=== PATIENT | male | born 1950 | race Caucasian/White ===

== ENCOUNTER → 2021-04-09 | Outpatient (CLI) | payer BC | LOC: HEART 5 15:01 | DX: J44.9 Chronic obstructive pulmonary disease, unspecified (principal) | CPT/HCPCS: 94060; 94729 ==

== ENCOUNTER 2021-07-16 14:46 | Inpatient (IN) | payer OTHER ==
[~2021-07-16] VITALS: Ht 170.2 cm; Wt 109.8 kg
[2021-07-16 15:06] LABS: RED BLOOD COUNT 4.21 M/UL (4.20-5.50); WHITE BLOOD COUNT 3.4 K/UL (4.5-11.0)
[2021-07-16 17:57] LABS: BUN/CREATININE RATIO 31 (0-10)
[2021-07-17] MEDS ORDERED: ZESTRIL5 MG PO (04:50)
[2021-07-17] MEDS ORDERED: OMEPRAZOLE20 MG PO (04:51)
[2021-07-17] MEDS ORDERED: POTASSIUM CHLO10 MEQ PO (04:52)
[2021-07-17] MEDS ORDERED: ADULT LOW DOSE81 MG PO (04:53)
[2021-07-17] MEDS ORDERED: LOVASTATIN20 MG PO (04:53)
[2021-07-17] MEDS ORDERED: ISOSORBIDE MONO30 MG PO (04:55)
[2021-07-17] MEDS ORDERED: LASIX40 MG PO (04:55)
[2021-07-17] MEDS ORDERED: GLUCOPHAGE 500500 MG PO (04:56)
[2021-07-17] MEDS ORDERED: NITROSTAT 0.40.4 MG SL (04:57)
[2021-07-17] MEDS ORDERED: TRELEGY ELLIPT1 EAC1 INH (04:58)
[2021-07-17 07:16] LABS: HEMOGLOBIN 14.6 gm/dl (14.0-17.5); RED BLOOD COUNT 4.44 M/UL (4.20-5.50); WHITE BLOOD COUNT 3.3 K/UL (4.5-11.0)
[2021-07-17 07:38] LABS: BUN/CREATININE RATIO 31 (0-10)
[2021-07-18 03:32] LABS: HEMOGLOBIN 15.8 gm/dl (14.0-17.5); RED BLOOD COUNT 4.79 M/UL (4.20-5.50)
[2021-07-18 03:36] LABS: WHITE BLOOD COUNT 7.5 K/UL (4.5-11.0)
[2021-07-18 03:59] LABS: BUN/CREATININE RATIO 43 (0-10)
[2021-07-19 04:09] LABS: BUN/CREATININE RATIO 38 (0-10)
--- NOTE | 2021-07-21 01:24 | NUR ---
PTS OXYGEN IS 83% WITH 15L HF. NOTIFIED DR BARROS AND AIRVO ORDERED.
[2021-07-21 03:39] LABS: RED BLOOD COUNT 4.28 M/UL (4.20-5.50); WHITE BLOOD COUNT 9.8 K/UL (4.5-11.0)
[2021-07-21 04:03] LABS: BUN/CREATININE RATIO 39 (0-10)
--- NOTE | 2021-07-22 19:20 | NUR ---
CALLED CARDIOLOGY DR HOOPER AND NOTIFIED HIM OF PTS HR OF 45 AND PAUSES. NO NEW ORDERS AT THIS TIME.
[2021-07-23 03:05] LABS: HEMOGLOBIN 14.1 gm/dl (14.0-17.5); RED BLOOD COUNT 4.31 M/UL (4.20-5.50); WHITE BLOOD COUNT 8.4 K/UL (4.5-11.0)
[2021-07-23 04:04] LABS: BUN/CREATININE RATIO 45 (0-10)
--- NOTE | 2021-07-23 06:09 | NUR ---
LATE ENTRY 07/23/21 0220 PTS OXYGEN NOTED TO BE 87% WITH AIRVO AT 93% AND GOOD PLETH. NOTIFIED DR MENA AND ORDERS FOR BIPAP PLACED. RESP AT BEDSIDE.
[2021-07-24 03:28] LABS: HEMOGLOBIN 13.7 gm/dl (14.0-17.5); RED BLOOD COUNT 4.22 M/UL (4.20-5.50); WHITE BLOOD COUNT 8.4 K/UL (4.5-11.0)
[2021-07-24 03:50] LABS: BUN/CREATININE RATIO 47 (0-10)
[2021-07-25 03:57] LABS: HEMOGLOBIN 14.3 gm/dl (14.0-17.5); RED BLOOD COUNT 4.41 M/UL (4.20-5.50); WHITE BLOOD COUNT 8.6 K/UL (4.5-11.0)
[2021-07-25 04:16] LABS: BUN/CREATININE RATIO 51 (0-10)
[2021-07-27 04:15] LABS: HEMOGLOBIN 15.4 gm/dl (14.0-17.5); RED BLOOD COUNT 4.65 M/UL (4.20-5.50)
[2021-07-27 04:19] LABS: WHITE BLOOD COUNT 14.2 K/UL (4.5-11.0)
[2021-07-27 04:27] LABS: BUN/CREATININE RATIO 42 (0-10)
[2021-07-28 03:22] LABS: HEMOGLOBIN 14.5 gm/dl (14.0-17.5); RED BLOOD COUNT 4.36 M/UL (4.20-5.50); WHITE BLOOD COUNT 13.7 K/UL (4.5-11.0)
[2021-07-28 03:43] LABS: BUN/CREATININE RATIO 46 (0-10)
[2021-07-29 03:28] LABS: HEMOGLOBIN 14.4 gm/dl (14.0-17.5); RED BLOOD COUNT 4.36 M/UL (4.20-5.50); WHITE BLOOD COUNT 17.1 K/UL (4.5-11.0)
[2021-07-29 03:50] LABS: BUN/CREATININE RATIO 48 (0-10)
[2021-07-30 03:08] LABS: BUN/CREATININE RATIO 50 (0-10)
[2021-07-31 04:39] LABS: BUN/CREATININE RATIO 50 (0-10)
--- NOTE | 2021-08-01 03:32 | NUR ---
DONE PT TEACHING ON PT REGARDING BIPAP VERSUS AIRVO. PT CURRENTLY ON AIRVO SATING 85%. PT REFUSES TO PUT BIPAP ON AT THIS TIME. EXPLAINED IMPORTANCE.
[2021-08-02 03:20] LABS: BUN/CREATININE RATIO 49 (0-10)
[2021-08-02 18:57] LABS: HEMOGLOBIN 13.6 gm/dl (14.0-17.5); RED BLOOD COUNT 4.12 M/UL (4.20-5.50); WHITE BLOOD COUNT 15.1 K/UL (4.5-11.0)
--- NOTE | 2021-08-02 22:48 | NUR ---
EDUCATED PATIENT ON FALLS. EDUCATED PT ON SITTING IN CHAIR WHILE SLEEPING. PT REFUSES TO GET BACK IN BED AT THIS TIME.
[2021-08-03 03:55] LABS: BUN/CREATININE RATIO 46 (0-10)
[2021-08-04 04:00] LABS: HEMOGLOBIN 14.1 gm/dl (14.0-17.5); RED BLOOD COUNT 4.2 M/UL (4.20-5.50)
[2021-08-04 04:22] LABS: BUN/CREATININE RATIO 51 (0-10)
[2021-08-05 03:39] LABS: BUN/CREATININE RATIO 57 (0-10)
[2021-08-06 03:08] LABS: BUN/CREATININE RATIO 59 (0-10)
--- NOTE | 2021-08-07 01:51 | NUR ---
PT HAS MILD NOSE BLEEDS DUE TO NASAL CANULA.
[2021-08-08 02:08] LABS: HEMOGLOBIN 15.7 gm/dl (14.0-17.5); RED BLOOD COUNT 4.74 M/UL (4.20-5.50); WHITE BLOOD COUNT 14.6 K/UL (4.5-11.0)
[2021-08-08 02:28] LABS: BUN/CREATININE RATIO 54 (0-10)
[2021-08-11 02:25] LABS: HEMOGLOBIN 14.2 gm/dl (14.0-17.5); RED BLOOD COUNT 4.23 M/UL (4.20-5.50); WHITE BLOOD COUNT 13.1 K/UL (4.5-11.0)
[2021-08-11 02:55] LABS: BUN/CREATININE RATIO 37 (0-10)
[2021-08-12 15:10] LABS: HEMOGLOBIN 13.2 gm/dl (14.0-17.5); RED BLOOD COUNT 3.97 M/UL (4.20-5.50)
[2021-08-12 15:13] LABS: WHITE BLOOD COUNT 9.6 K/UL (4.5-11.0)
[2021-08-12 15:28] LABS: BUN/CREATININE RATIO 27 (0-10)
[2021-08-13 03:30] LABS: HEMOGLOBIN 12.2 gm/dl (14.0-17.5); RED BLOOD COUNT 3.68 M/UL (4.20-5.50); WHITE BLOOD COUNT 8.8 K/UL (4.5-11.0)
[2021-08-13 04:07] LABS: BUN/CREATININE RATIO 21 (0-10)
[2021-08-14 02:30] LABS: RED BLOOD COUNT 3.93 M/UL (4.20-5.50); WHITE BLOOD COUNT 10.4 K/UL (4.5-11.0)
[2021-08-14 03:02] LABS: BUN/CREATININE RATIO 25 (0-10)
[2021-08-15 02:43] LABS: HEMOGLOBIN 12.1 gm/dl (14.0-17.5); RED BLOOD COUNT 3.71 M/UL (4.20-5.50)
[2021-08-15 02:52] LABS: WHITE BLOOD COUNT 7.4 K/UL (4.5-11.0)
[2021-08-15 03:12] LABS: BUN/CREATININE RATIO 25 (0-10)
[2021-08-16 12:36] LABS: HEMOGLOBIN 11.8 gm/dl (14.0-17.5); RED BLOOD COUNT 3.54 M/UL (4.20-5.50); WHITE BLOOD COUNT 8.4 K/UL (4.5-11.0)
[2021-08-16 13:18] LABS: BUN/CREATININE RATIO 34 (0-10)
[2021-08-17 04:21] LABS: HEMOGLOBIN 10.8 gm/dl (14.0-17.5); RED BLOOD COUNT 3.3 M/UL (4.20-5.50); WHITE BLOOD COUNT 8.8 K/UL (4.5-11.0)
[2021-08-17 04:50] LABS: BUN/CREATININE RATIO 37 (0-10)
[2021-08-18 05:30] LABS: HEMOGLOBIN 10.8 gm/dl (14.0-17.5); RED BLOOD COUNT 3.23 M/UL (4.20-5.50); WHITE BLOOD COUNT 7.4 K/UL (4.5-11.0)
[2021-08-18 06:05] LABS: BUN/CREATININE RATIO 43 (0-10)
[2021-08-19 05:42] LABS: HEMOGLOBIN 11.2 gm/dl (14.0-17.5); RED BLOOD COUNT 3.43 M/UL (4.20-5.50); WHITE BLOOD COUNT 8.6 K/UL (4.5-11.0)
[2021-08-19 06:05] LABS: BUN/CREATININE RATIO 34 (0-10)
[2021-08-19] MEDS ORDERED: NEBULIZER UNIT NEB (11:07)
[2021-08-19] MEDS ORDERED: IPRAT-ALBUT 0.5-3 ML INH (11:07)
[2021-08-19] MEDS ORDERED: LASIX40 MG PO (11:56)
== END 2021-08-19 19:40 | DRG 177 ==
LOC: ER1 14:46 → CCU 18:17 → CDU 18:17 → PROG CARE 18:17 → CCU 08-17 18:01
PROVIDERS: Family Medicine; Internal Medicine; Internal Medicine Critical Care Medicine; Internal Medicine Pulmonary Disease; Physician Assistant Medical; ADMIT Internal Medicine Infectious Disease
PROC: 8E0ZXY6 Isolation (ICD-10-PCS; principal; 2021-07-16)
PROC: XW033E5 Introduction of Remdesivir Anti-infective into Peripheral Vein, Percutaneous Approach, New Technology Group 5 (ICD-10-PCS; 2021-07-16)
PROC: 3E0333Z Introduction of Anti-inflammatory into Peripheral Vein, Percutaneous Approach (ICD-10-PCS; 2021-07-16)
PROC: XW033H5 Introduction of Tocilizumab into Peripheral Vein, Percutaneous Approach, New Technology Group 5 (ICD-10-PCS; 2021-07-16)
PROC: B24BZZZ Ultrasonography of Heart with Aorta (ICD-10-PCS; 2021-07-17)
PROC: 5A0945A Assistance with Respiratory Ventilation, 24-96 Consecutive Hours, High Flow/Velocity Cannula (ICD-10-PCS; 2021-07-19)
PROC: 5A09357 Assistance with Respiratory Ventilation, Less than 24 Consecutive Hours, Continuous Positive Airway Pressure (ICD-10-PCS; 2021-07-23)
PROC: 5A0955A Assistance with Respiratory Ventilation, Greater than 96 Consecutive Hours, High Flow/Velocity Cannula (ICD-10-PCS; 2021-07-23)
PROC: 5A09357 Assistance with Respiratory Ventilation, Less than 24 Consecutive Hours, Continuous Positive Airway Pressure (ICD-10-PCS; 2021-07-29)
PROC: 5A0945A Assistance with Respiratory Ventilation, 24-96 Consecutive Hours, High Flow/Velocity Cannula (ICD-10-PCS; 2021-07-29)
PROC: 5A09357 Assistance with Respiratory Ventilation, Less than 24 Consecutive Hours, Continuous Positive Airway Pressure (ICD-10-PCS; 2021-07-31)
PROC: 5A0935A Assistance with Respiratory Ventilation, Less than 24 Consecutive Hours, High Flow/Velocity Cannula (ICD-10-PCS; 2021-07-31)
PROC: 5A09357 Assistance with Respiratory Ventilation, Less than 24 Consecutive Hours, Continuous Positive Airway Pressure (ICD-10-PCS; 2021-07-31)
PROC: 5A0935A Assistance with Respiratory Ventilation, Less than 24 Consecutive Hours, High Flow/Velocity Cannula (ICD-10-PCS; 2021-07-31)
PROC: 5A09357 Assistance with Respiratory Ventilation, Less than 24 Consecutive Hours, Continuous Positive Airway Pressure (ICD-10-PCS; 2021-08-01)
PROC: 5A0935A Assistance with Respiratory Ventilation, Less than 24 Consecutive Hours, High Flow/Velocity Cannula (ICD-10-PCS; 2021-08-01)
PROC: 5A09357 Assistance with Respiratory Ventilation, Less than 24 Consecutive Hours, Continuous Positive Airway Pressure (ICD-10-PCS; 2021-08-02)
PROC: 5A0955A Assistance with Respiratory Ventilation, Greater than 96 Consecutive Hours, High Flow/Velocity Cannula (ICD-10-PCS; 2021-08-02)
PROC: 5A0935A Assistance with Respiratory Ventilation, Less than 24 Consecutive Hours, High Flow/Velocity Cannula (ICD-10-PCS; 2021-08-19)
DX: U07.1 COVID-19 (principal); J12.82 Pneumonia due to coronavirus disease 2019; J80 Acute respiratory distress syndrome; J15.9 Unspecified bacterial pneumonia; I50.33 Acute on chronic diastolic (congestive) heart failure; J44.0 Chronic obstructive pulmonary disease with (acute) lower respiratory infection; I48.20 Chronic atrial fibrillation, unspecified; E66.2 Morbid (severe) obesity with alveolar hypoventilation; J44.1 Chronic obstructive pulmonary disease with (acute) exacerbation; I11.0 Hypertensive heart disease with heart failure; K21.9 Gastro-esophageal reflux disease without esophagitis; I95.9 Hypotension, unspecified; D72.819 Decreased white blood cell count, unspecified; E11.65 Type 2 diabetes mellitus with hyperglycemia; J84.10 Pulmonary fibrosis, unspecified; I71.4 Abdominal aortic aneurysm, without rupture; D69.6 Thrombocytopenia, unspecified; E78.5 Hyperlipidemia, unspecified; R00.1 Bradycardia, unspecified; I44.4 Left anterior fascicular block; R53.81 Other malaise; R04.0 Epistaxis; I25.10 Atherosclerotic heart disease of native coronary artery without angina pectoris; I48.0 Paroxysmal atrial fibrillation; L89.329 Pressure ulcer of left buttock, unspecified stage; Z95.1 Presence of aortocoronary bypass graft; Z98.84 Bariatric surgery status; Z88.2 Allergy status to sulfonamides; Z87.891 Personal history of nicotine dependence; Z83.3 Family history of diabetes mellitus; Z79.01 Long term (current) use of anticoagulants; Z23 Encounter for immunization; Z79.82 Long term (current) use of aspirin; Z68.37 Body mass index [BMI] 37.0-37.9, adult; Z79.4 Long term (current) use of insulin; Z99.81 Dependence on supplemental oxygen
CPT/HCPCS: ECHO; 36415; 36600; 71045; 80048; 80053; 80202; 82550; 82553; 82803; 82962; 83036; 83605; 83615; 83735; 83874; 83880; 84439; 84443; 84484; 85025; 85027; 85379; 85610; 86140; 87040; 93005; 93306; 94640; 94660; 94664; 94760; 96372; 96374; 96375; 97161; 99285; A6212; G0378; J0248; J0692; J0696; J1100; J1205; J1650; J1720; J1940; J2185; J2930; J3370; J7030; J7070; Q9967; U0002